=== PATIENT | male | born 1940 | race Caucasian/White ===

== ENCOUNTER 2018-07-07 09:48 | Emergency (ER) | payer MEDICARE, BC ==
[2018-07-07 10:35] LABS: Anion Gap 13 mmol/L (10-20); BUN (Urea Nitrogen) 18 mg/dL (8.4-25.7); Calc. Creatinine Clearance 0 mL/min (70-130); Calcium 9.8 mg/dL (7.8-10.44); Carbon Dioxide 25 mmol/L (23-31); Chloride 103 mmol/L (98-107); Estimated GFR-MDRD 52; Glucose 98 mg/dL (83-110); Potassium 4.3 mmol/L (3.5-5.1); Sodium 137 mmol/L (136-145)
[2018-07-07] MEDS ORDERED: Colchicine 0.6 MG TAB ONE (10:38)
== END 2018-07-07 10:48 | disposition home or self-care (01) ==
LOC: SCSER 09:48
DX: M10.9 Gout, unspecified (principal); I10 Essential (primary) hypertension
CPT/HCPCS: 36415; 80048; 84550; 99283

== ENCOUNTER 2025-02-24 10:26 | Emergency (ER) | payer MEDICARE | END 2025-02-24 13:48 | disposition home or self-care (01) | LOC: ERS 10:26 | DX: M54.50 Low back pain, unspecified (principal); G89.29 Other chronic pain; M79.604 Pain in right leg; I10 Essential (primary) hypertension | CPT/HCPCS: 99283 ==